=== PATIENT | female | born 1970 | race Caucasian/White ===

== ENCOUNTER 2017-10-07 05:55 | Observation (INO) | payer BC ==
[2017-10-07] MEDS: CEFAZOLIN 1 GM/50 ML (PMX) 50 ML IVPB (07:00)
[2017-10-07] MEDS: SOD CHLORIDE 0.9% 1,000 ML IV ×2 (07:00→20:20)
[2017-10-07] MEDS ORDERED: SODIUM CL BACTERIOSTATIC 30 ML INJ (07:03)
[2017-10-07] MEDS ORDERED: PROPOFOL 20 ML ×2 (07:22→09:29)
[2017-10-07] MEDS ORDERED: LIDOCAINE 2% (SDV) 5 ML INJ (07:22)
[2017-10-07] MEDS ORDERED: ROCURONIUM 50 MG INJ ×2 (07:23→09:33)
[2017-10-07] MEDS ORDERED: CEFAZOLIN 1 GM INJ (07:27)
[2017-10-07] MEDS ORDERED: FENTAnyl 50 MCG/ML VIAL (07:28)
[2017-10-07] MEDS ORDERED: ONDANSETRON 4 MG INJ (07:29)
[2017-10-07] MEDS ORDERED: DEXAMETHASONE 4 MG/ML 1 ML INJ (07:29)
[2017-10-07] MEDS ORDERED: ACETAMINOPHEN 1000MG/100ML IV 100 ML (08:07)
[2017-10-07] MEDS ORDERED: HYDROmorphONE 2 MG/ML SYG (08:25)
[2017-10-07] MEDS ORDERED: EPHEDrine SULFATE 50 MG/5 ML SYG (08:38)
[2017-10-07] MEDS ORDERED: ACETAMINOPHEN 325 MG TAB PO (09:30)
[2017-10-07] MEDS ORDERED: HYDROmorphONE 0.5 MG/0.5 ML SYG IV (09:30)
[2017-10-07] MEDS ORDERED: SUGAMMADEX SODIUM 200 MG/2 ML VIAL IV (09:33)
[2017-10-07] MEDS ORDERED: CEFOTAXIME 1 GM/50 ML (PMX) 50 ML IVPB (12:00)
[2017-10-07] MEDS ORDERED: FENTAnyl 50 MCG/ML VIAL IV (12:30)
[2017-10-07] MEDS ORDERED: ONDANSETRON 4 MG INJ IV (12:30)
[2017-10-07] MEDS ORDERED: HYDROmorphONE (0.2 MG/ML) 10ML SYG IV ×2 (12:30)
[2017-10-07] MEDS: POLYMYXIN/BACITRACIN 1L IRRIG (13:30)
[2017-10-07] MEDS: BUPIVACAINE LIPOSOME/PF 266 MG/20 ML VIAL INFIL (13:30)
[2017-10-07] MEDS: GENTAMICIN 80 MG INJ (13:30)
[2017-10-07] MEDS: LACTATED RINGER'S 1,000 ML IV ×2 (15:15→18:38)
[2017-10-07] MEDS: CEFOTAXIME 1 GM/50 ML (PMX) 50 ML IVPB (16:23)
[2017-10-07] MEDS: ONDANSETRON 4 MG INJ IV (18:10)
[2017-10-07] MEDS: HYDROCODONE/APAP (10/325) TAB PO (18:11)
[2017-10-08] MEDS: CEFOTAXIME 1 GM/50 ML (PMX) 50 ML IVPB ×2 (00:12→08:19)
[2017-10-08] MEDS: LACTATED RINGER'S 1,000 ML IV ×2 (00:12→15:12)
[2017-10-08] MEDS: HYDROCODONE/APAP (10/325) TAB PO (08:19)
[2017-10-08] MEDS: SOD CHLORIDE 0.9% 1,000 ML IV (09:40)
== END 2017-10-08 17:30 | disposition home or self-care (01) ==
LOC: SDS 05:55 → REC 09:12 → MS1 14:13
DX: Z40.01 Encounter for prophylactic removal of breast (principal); N60.32 Fibrosclerosis of left breast; N60.31 Fibrosclerosis of right breast; N64.1 Fat necrosis of breast; N60.92 Unspecified benign mammary dysplasia of left breast; N60.11 Diffuse cystic mastopathy of right breast; N61.0 Mastitis without abscess; Z85.3 Personal history of malignant neoplasm of breast; Z92.21 Personal history of antineoplastic chemotherapy
CPT/HCPCS: 15777; 84703; 88300; 88307

== ENCOUNTER 2018-01-01 09:37 | Day surgery (SDC) | payer BC ==
[~2018-01-01 09:37] MED LIST: GLYCOPYRROLATE 0.4 MG INJ
[2018-01-01] MEDS ORDERED: ONDANSETRON 4 MG INJ IV (10:30)
[2018-01-01] MEDS ORDERED: FENTAnyl 50 MCG/ML VIAL IV ×3 (10:30)
[2018-01-01] MEDS ORDERED: HYDROmorphONE 1 MG/5 ML IV SYRINGE IV ×3 (10:30)
[2018-01-01] MEDS ORDERED: OXYCODONE/ACETAMINOPHEN (5/325) TAB PO ×2 (10:30)
[2018-01-01] MEDS ORDERED: FENTAnyl 50 MCG/ML VIAL (11:27)
[2018-01-01] MEDS ORDERED: LIDOCAINE 100 MG SYRINGE (11:32)
[2018-01-01] MEDS ORDERED: PROPOFOL 20 ML (11:32)
[2018-01-01] MEDS ORDERED: ONDANSETRON 4 MG INJ (11:33)
[2018-01-01] MEDS ORDERED: DEXAMETHASONE 4 MG/ML 1 ML INJ (11:33)
[2018-01-01] MEDS ORDERED: CEFAZOLIN 1 GM INJ (12:11)
[2018-01-01] MEDS: LIDOCAINE 1%/EPI 30 ML INJ (12:46)
== END 2018-01-01 14:45 | disposition home or self-care (01) ==
LOC: SDS 09:37
DX: Z45.2 Encounter for adjustment and management of vascular access device (principal); Z85.3 Personal history of malignant neoplasm of breast
CPT/HCPCS: 36590; 71045; 88300; 93005